=== PATIENT | male | born 1955 | race African-American/Black ===

== ENCOUNTER 2021-09-06 19:39 | Inpatient (IN) | payer MEDICARE, OTHER ==
[~2021-09-06] VITALS: Ht 170.2 cm; Wt 79.8 kg
[2021-09-06] MEDS ORDERED: ASPIRIN 81MG TABLET PO ONE (21:00)
[2021-09-06 21:44] LABS: HEMATOCRIT. 49.2 % (42.0-52.0); MEAN CORPUSCULAR HEMOGLOBIN 26.9 pg (28.0-32.0); MEAN CORPUSCULAR VOLUME 82.7 fL (80.0-94.0); MEAN PLATELET VOLUME 8.8 fl (7.4-10.4); PLATELET 107 x1000/uL (130-400); RED BLOOD CELL COUNT 5.95 mill/uL (4.7-6.1); RED CELL DISTRIBUTION WIDTH 13.9 % (11.6-14.6)
[2021-09-06 21:48] LABS: CHLORIDE 102 mEq/L (98-107)
[2021-09-06 22:15] LABS: PLATELET ESTIMATE DECREASED
[2021-09-06 23:15] LABS: CLARITY URINE CLEAR (CLEAR); COLOR URINE YELLOW (YELLOW); KETONES URINE NEGATIVE (NEGATIVE); LEUKOCYTE ESTERASE URINE NEGATIVE (NEGATIVE); NITRITE URINE NEGATIVE (NEGATIVE); OCCULT BLOOD URINE 2+ (NEGATIVE); PROTEIN URINE NEGATIVE (NEGATIVE); SPECIFIC GRAVITY URINE 1.007 (1.005-1.030); UROBILINOGEN URINE 0.2 E.U./dL (0.2-1.0)
[2021-09-06] MEDS ORDERED: NITROGLYCERIN 0.4MG TABLET SL SL PRN (23:15)
[2021-09-06] MEDS ORDERED: ONDANSETRON HCL 4MG/2ML INJ IV PRN (23:15)
[2021-09-06] MEDS ORDERED: DOCUSATE SODIUM 100MG CAPSULE PO PRN (23:15)
[2021-09-06] MEDS ORDERED: MAGNESIUM/ALUMINUM HYDROXIDE/SIMETHICONE 30ML UDC PO PRN (23:15)
[2021-09-06] MEDS ORDERED: POTASSIUM CHLORIDE 20MEQ TABLET SR PO NR (23:15)
[2021-09-06] MEDS ORDERED: CLONIDINE 0.1MG TABLET PO PRN (23:15)
[2021-09-06] MEDS: AMLODIPINE 10MG TABLET PO SCH (23:15)
[2021-09-06] MEDS ORDERED: KETOROLAC 15MG/ML VIAL IV PRN (23:15)
[2021-09-06] MEDS ORDERED: ACETAMINOPHEN 325MG TABLET PO PRN (23:15)
[2021-09-06] MEDS ORDERED: IPRATROPIUM/ALBUTEROL 0.5-3(2.5)MG/3ML NEB NEB PRN (23:15)
[2021-09-06 23:52] LABS: ETHANOL BLOOD < 10 mg/dL
[2021-09-06 23:55] LABS: LDL CHOLESTEROL 93 mg/dL (5-100); TOTAL IRON BINDING CAPACITY 317 ug/dL (250-450)
[2021-09-06 23:58] LABS: HDL CHOLESTEROL 61 mg/dL (40-59)
[2021-09-07] MEDS: GUAIFENESIN 200MG/10ML SUGAR FREE UDC PO PRN ×2 (00:32→22:06)
[2021-09-07 01:35] LABS: FOLIC ACID (FOLATE) SERUM 17.1 ng/mL (>5.38)
[2021-09-07] MEDS: ZOLPIDEM TARTRATE 5MG TABLET PO PRN ×2 (03:39→20:20)
[2021-09-07 05:09] LABS: BASOPHILS % 0.3 % (0.0-2.0); HEMATOCRIT. 46.7 % (42.0-52.0); HEMOGLOBIN. 15.5 g/dL (14.0-18.0); MEAN CORPUSCULAR HEMOGLOBIN 27.3 pg (28.0-32.0); MEAN CORPUSCULAR VOLUME 82.2 fL (80.0-94.0); MEAN PLATELET VOLUME 8.7 fl (7.4-10.4); MONOCYTES % 10.7 % (2.0-8.0); PLATELET 109 x1000/uL (130-400); RED BLOOD CELL COUNT 5.68 mill/uL (4.7-6.1); RED CELL DISTRIBUTION WIDTH 14.1 % (11.6-14.6)
[2021-09-07 05:19] LABS: CHLORIDE 104 mEq/L (98-107)
[2021-09-07 05:24] LABS: PHOSPHORUS 3.5 mg/dL (2.5-4.9)
[2021-09-07 05:28] LABS: CREATINE KINASE 195 IU/L (39-308)
[2021-09-07 05:30] LABS: CREATINE KINASE MB FRACTION 2.6 ng/mL (0.5-3.6)
[2021-09-07] MEDS: ENOXAPARIN 40MG/0.4ML SYR SUBCUT SCH (09:00)
[2021-09-07] MEDS: TAMSULOSIN HCL 0.4MG SR CAPSULE PO SCH (09:00)
[2021-09-07] MEDS: DUTASTERIDE 0.5MG CAPSULE PO SCH (09:00)
[2021-09-07] MEDS: AMLODIPINE 10MG TABLET PO SCH (09:00)
[2021-09-07] MEDS: ASPIRIN 325MG EC TABLET PO SCH (09:00)
[2021-09-07] MEDS: FAMOTIDINE 20MG TABLET PO SCH (09:00)
[2021-09-07 11:02] LABS: *COCAINE SCREEN URINE NEGATIVE (NEGATIVE); METHADONE URINE SCREEN NEGATIVE (NEGATIVE); OPIATES URINE SCREEN NEGATIVE (NEGATIVE)
[2021-09-07 11:12] LABS: *AMPHETAMINES SCREEN URINE NEGATIVE (NEGATIVE); *BARBITURATES SCREEN URINE NEGATIVE (NEGATIVE); CANNABINOID URINE SCREEN NEGATIVE (NEGATIVE); PHENCYCLIDINE URINE SCREEN NEGATIVE (NEGATIVE)
[2021-09-07 11:13] LABS: *BENZODIAZEPINES SCREEN URINE NEGATIVE (NEGATIVE)
[2021-09-07 15:39] VITALS: BP 129/92
[2021-09-07] MEDS ORDERED: ATOR20TA65 MT (15:47)
[2021-09-07] MEDS ORDERED: LISI10TA26 MT (15:47)
[2021-09-07 16:00] VITALS: BP 132/96
[2021-09-07 20:00] VITALS: BP 153/95
[2021-09-08] VITALS: BP_SYST 115; BP_SYST 143; BP_DIAS 70; BP_DIAS 89
[2021-09-08 00:01] LABS: CREATINE KINASE 304 IU/L (39-308)
[2021-09-08 00:02] LABS: CREATINE KINASE MB FRACTION 2.7 ng/mL (0.5-3.6)
[2021-09-08 04:00] VITALS: BP 142/87
[2021-09-08 08:00] VITALS: BP 146/83
[2021-09-08] MEDS: ASPIRIN 325MG EC TABLET PO SCH (08:22)
[2021-09-08] MEDS: ENOXAPARIN 40MG/0.4ML SYR SUBCUT SCH (08:22)
[2021-09-08] MEDS: FAMOTIDINE 20MG TABLET PO SCH (08:22)
[2021-09-08] MEDS: ACETAMINOPHEN 325MG TABLET PO PRN ×2 (08:23→20:12)
[2021-09-08] MEDS: DUTASTERIDE 0.5MG CAPSULE PO SCH (08:24)
[2021-09-08] MEDS: AMLODIPINE 10MG TABLET PO SCH (08:24)
[2021-09-08] MEDS: TAMSULOSIN HCL 0.4MG SR CAPSULE PO SCH (08:27)
[2021-09-08 12:00] VITALS: BP 135/90
[2021-09-08 16:00] VITALS: BP 110/77
[2021-09-08 20:00] VITALS: BP 144/90
[2021-09-08] MEDS: ZOLPIDEM TARTRATE 5MG TABLET PO PRN (22:59)
[2021-09-09] VITALS: BP 124/81
[2021-09-09 04:00] VITALS: BP 121/75
[2021-09-09 08:00] VITALS: BP 128/80
[2021-09-09] MEDS: ASPIRIN 325MG EC TABLET PO SCH (09:12)
[2021-09-09] MEDS: AMLODIPINE 10MG TABLET PO SCH (09:12)
[2021-09-09] MEDS: ENOXAPARIN 40MG/0.4ML SYR SUBCUT SCH (09:12)
[2021-09-09] MEDS: FAMOTIDINE 20MG TABLET PO SCH (09:12)
[2021-09-09] MEDS: TAMSULOSIN HCL 0.4MG SR CAPSULE PO SCH (09:13)
[2021-09-09 12:00] VITALS: BP 137/80
[2021-09-09 16:00] VITALS: BP 137/91
[2021-09-09] MEDS: DUTASTERIDE 0.5MG CAPSULE PO SCH (16:58)
[2021-09-09 20:00] VITALS: BP 137/87
[2021-09-09] MEDS: ACETAMINOPHEN 325MG TABLET PO PRN (23:48)
[2021-09-09] MEDS: ZOLPIDEM TARTRATE 5MG TABLET PO PRN (23:48)
[2021-09-10] VITALS: BP 149/88
[2021-09-10 04:00] VITALS: BP 148/90
[2021-09-10 08:00] VITALS: BP 141/98
[2021-09-10] MEDS: AMLODIPINE 10MG TABLET PO SCH (09:05)
[2021-09-10] MEDS: TAMSULOSIN HCL 0.4MG SR CAPSULE PO SCH (09:05)
[2021-09-10] MEDS: DUTASTERIDE 0.5MG CAPSULE PO SCH (09:05)
[2021-09-10] MEDS: ASPIRIN 325MG EC TABLET PO SCH (09:06)
[2021-09-10] MEDS: ENOXAPARIN 40MG/0.4ML SYR SUBCUT SCH (09:06)
[2021-09-10] MEDS: FAMOTIDINE 20MG TABLET PO SCH (09:06)
[2021-09-10 12:00] VITALS: BP 147/95
[2021-09-10 12:16] VITALS: BP 141/98
[2021-09-14] MEDS ORDERED: CIPR-263 MT (14:48)
== END 2021-09-10 14:30 | disposition home or self-care (01) | DRG 304 ==
LOC: ER 19:39 → MICUSO 22:50 → 7EST 09-07 14:56
PROVIDERS: ADMIT Internal Medicine; ATTEND Internal Medicine
DX: I16.1 Hypertensive emergency (principal); U07.1 COVID-19; J12.82 Pneumonia due to coronavirus disease 2019; N17.0 Acute kidney failure with tubular necrosis; I50.30 Unspecified diastolic (congestive) heart failure; R33.9 Retention of urine, unspecified; E87.6 Hypokalemia; I11.0 Hypertensive heart disease with heart failure; N40.0 Benign prostatic hyperplasia without lower urinary tract symptoms
CPT/HCPCS: 36415; 71045; 76770; 80053; 80061; 80305; 80320; 81003; 82550; 82553; 82607; 82746; 83036; 83540; 83550; 83735; 83880; 84100; 84145; 84484; 85025; 87426; 93005; 93970; 99285; J1650; J1885; G0480

== ENCOUNTER 2021-09-15 10:19 | Emergency (ER) | payer OTHER ==
[~2021-09-15] VITALS: Ht 170.2 cm; Wt 81.0 kg
[~2021-09-15 10:19] MED LIST: ATOR20TA65 MT; CIPR-263 MT; LISI10TA26 MT
[2021-09-15 11:03] VITALS: BP 140/68
== END 2021-09-15 11:04 | disposition home or self-care (01) ==
LOC: ER 10:19
DX: R33.9 Retention of urine, unspecified (principal); T83.018A Breakdown (mechanical) of other urinary catheter, initial encounter; I10 Essential (primary) hypertension
CPT/HCPCS: 99281

== ENCOUNTER 2021-09-16 12:51 | Inpatient (IN) | payer OTHER ==
[~2021-09-16] VITALS: Ht 170.2 cm; Wt 77.1 kg
[2021-09-16] MEDS ORDERED: CEFTRIAXONE 1 G PREMIX 50 ML IV ONE (15:45)
[2021-09-16 15:50] LABS: CLARITY URINE CLOUDY (CLEAR); COLOR URINE RED (YELLOW); KETONES URINE NEGATIVE (NEGATIVE); LEUKOCYTE ESTERASE URINE 2+ (NEGATIVE); NITRITE URINE NEGATIVE (NEGATIVE); OCCULT BLOOD URINE 3+ (NEGATIVE); PROTEIN URINE 2+ (NEGATIVE); SPECIFIC GRAVITY URINE 1.018 (1.005-1.030); UROBILINOGEN URINE 0.2 E.U./dL (0.2-1.0)
[2021-09-16] MEDS ORDERED: ACETAMINOPHEN 325MG TABLET PO ONE (16:00)
[2021-09-16] MEDS ORDERED: IPRATROPIUM BROMIDE (0.02%) 0.5MG/2.5ML NEB HHN STA (16:28)
[2021-09-16] MEDS ORDERED: ALBUTEROL (0.083%) 2.5MG/3ML NEB HHN STA (16:28)
[2021-09-16] MEDS ORDERED: LISINOPRIL 40MG TABLET PO ONE (16:30)
[2021-09-16] MEDS ORDERED: SODIUM CHLORIDE 0.9% 1,000 ML IV ONE (17:15)
[2021-09-16 17:19] LABS: BG BASE EXCESS -2.8 mmol/L (-2.0-2.0); BG CARBOXYHEMOGLOBIN 0.7 % (0.5-1.5); BG DEOXYHEMOGLOBIN 3.8 % (0.0-5.0); BG HCO3 ACT 21.6 mmol/L (22.0-26.0); BG METHEMOGLOBIN 0.4 % (0.0-1.5); BG OXYGEN SATURATION 96.2 % (92.0-98.5); BG OXYHEMOGLOBIN 95.1 % (94.0-97.0); BG PCO2 36.7 mmHg (35.0-45.0); BG PH 7.387 (7.350-7.450); BG PO2 81.1 mmHg (75.0-100.0); BG SAMPLE SITE RIGHT RADIAL; BG TOTAL HEMOGLOBIN 15.4 g/dL (12.0-18.0); BG VENT MODE ROOM AIR
[2021-09-16] MEDS ORDERED: MAGNESIUM/ALUMINUM HYDROXIDE/SIMETHICONE 30ML UDC PO PRN (18:45)
[2021-09-16] MEDS ORDERED: DOCUSATE SODIUM 100MG CAPSULE PO PRN (18:45)
[2021-09-16] MEDS ORDERED: GUAIFENESIN 200MG/10ML SUGAR FREE UDC PO PRN (18:45)
[2021-09-16] MEDS ORDERED: ONDANSETRON HCL 4MG/2ML INJ IV PRN (18:45)
[2021-09-16] MEDS ORDERED: NITROGLYCERIN 0.4MG TABLET SL SL PRN (18:45)
[2021-09-16] MEDS ORDERED: ACETAMINOPHEN 325MG TABLET PO PRN (18:45)
[2021-09-16] MEDS ORDERED: IPRATROPIUM/ALBUTEROL 0.5-3(2.5)MG/3ML NEB NEB PRN (18:45)
[2021-09-16] MEDS ORDERED: CLONIDINE 0.1MG TABLET PO PRN (18:45)
[2021-09-16] MEDS: AMLODIPINE 10MG TABLET PO SCH (19:03)
[2021-09-16] MEDS ORDERED: LEVOFLOXACIN 500MG PREMIX 100 ML IV NR (20:00)
[2021-09-16] MEDS: FAMOTIDINE 20MG TABLET PO SCH (20:55)
[2021-09-16] MEDS: DUTASTERIDE 0.5MG CAPSULE PO SCH (22:33)
[2021-09-16] MEDS: ZOLPIDEM TARTRATE 5MG TABLET PO PRN (22:33)
[2021-09-17 00:11] LABS: HEMATOCRIT. 45.1 % (42.0-52.0); HEMOGLOBIN. 14.2 g/dL (14.0-18.0); MEAN CORPUSCULAR HEMOGLOBIN 26.5 pg (28.0-32.0); MEAN CORPUSCULAR VOLUME 83.8 fL (80.0-94.0); MEAN PLATELET VOLUME 7.7 fl (7.4-10.4); PLATELET 212 x1000/uL (130-400); RED BLOOD CELL COUNT 5.38 mill/uL (4.7-6.1); RED CELL DISTRIBUTION WIDTH 13.9 % (11.6-14.6)
[2021-09-17 00:34] LABS: CREATINE KINASE MB FRACTION 2.6 ng/mL (0.5-3.6)
[2021-09-17 02:30] VITALS: BP 156/92
[2021-09-17] MEDS: ZOLPIDEM TARTRATE 5MG TABLET PO PRN ×2 (02:59→21:19)
[2021-09-17 05:07] LABS: PLATELET ESTIMATE NORMAL
[2021-09-17 07:54] LABS: HEMATOCRIT. 42.5 % (42.0-52.0); HEMOGLOBIN. 13.9 g/dL (14.0-18.0); MEAN CORPUSCULAR HEMOGLOBIN 27.1 pg (28.0-32.0); MEAN PLATELET VOLUME 7.7 fl (7.4-10.4); PLATELET 205 x1000/uL (130-400); RED BLOOD CELL COUNT 5.12 mill/uL (4.7-6.1); RED CELL DISTRIBUTION WIDTH 13.8 % (11.6-14.6)
[2021-09-17 07:59] LABS: CHLORIDE 111 mEq/L (98-107)
[2021-09-17 08:00] VITALS: BP 140/82
[2021-09-17] MEDS: DUTASTERIDE 0.5MG CAPSULE PO SCH (08:17)
[2021-09-17] MEDS: TAMSULOSIN HCL 0.4MG SR CAPSULE PO SCH (08:17)
[2021-09-17] MEDS: ENOXAPARIN 30MG/0.3ML SYR SUBCUT SCH (08:18)
[2021-09-17] MEDS: AMLODIPINE 10MG TABLET PO SCH (08:18)
[2021-09-17 08:20] LABS: PHOSPHORUS 3.7 mg/dL (2.5-4.9)
[2021-09-17 08:22] LABS: CREATINE KINASE 242 IU/L (39-308)
[2021-09-17 08:25] LABS: CREATINE KINASE MB FRACTION 3.3 ng/mL (0.5-3.6)
[2021-09-17] MEDS: ACETAMINOPHEN 325MG TABLET PO PRN ×2 (08:46→21:19)
[2021-09-17 10:32] LABS: PLATELET ESTIMATE NORMAL
[2021-09-17 12:00] VITALS: BP 110/72
[2021-09-17 12:32] LABS: *AMPHETAMINES SCREEN URINE NEGATIVE (NEGATIVE); *BARBITURATES SCREEN URINE NEGATIVE (NEGATIVE); *BENZODIAZEPINES SCREEN URINE NEGATIVE (NEGATIVE); *COCAINE SCREEN URINE NEGATIVE (NEGATIVE); CANNABINOID URINE SCREEN NEGATIVE (NEGATIVE); METHADONE URINE SCREEN NEGATIVE (NEGATIVE); OPIATES URINE SCREEN NEGATIVE (NEGATIVE); PHENCYCLIDINE URINE SCREEN NEGATIVE (NEGATIVE)
[2021-09-17 16:00] VITALS: BP 128/78
[2021-09-17] MEDS: FAMOTIDINE 20MG TABLET PO SCH (21:15)
[2021-09-18 04:00] VITALS: BP 132/78
[2021-09-18 08:00] VITALS: BP 149/84
[2021-09-18] MEDS: AMLODIPINE 10MG TABLET PO SCH (09:01)
[2021-09-18] MEDS: TAMSULOSIN HCL 0.4MG SR CAPSULE PO SCH (09:01)
[2021-09-18] MEDS: DUTASTERIDE 0.5MG CAPSULE PO SCH (09:01)
[2021-09-18] MEDS: ACETAMINOPHEN 325MG TABLET PO PRN ×2 (09:02→20:43)
[2021-09-18] MEDS: ENOXAPARIN 30MG/0.3ML SYR SUBCUT SCH (09:02)
[2021-09-18 12:00] VITALS: BP 121/74
[2021-09-18 16:00] VITALS: BP 117/72
[2021-09-18 20:00] VITALS: BP 136/85
[2021-09-18] MEDS ORDERED: LEVOFLOXACIN 250MG PREMIX 50 ML IV SCH (20:00)
[2021-09-18] MEDS: FAMOTIDINE 20MG TABLET PO SCH (20:42)
[2021-09-18] MEDS: ZOLPIDEM TARTRATE 5MG TABLET PO PRN (20:42)
[2021-09-19] VITALS: BP 130/91
[2021-09-19 06:00] VITALS: BP 148/92
[2021-09-19 07:52] LABS: CHLORIDE 110 mEq/L (98-107)
[2021-09-19 07:56] LABS: BASOPHILS % 0.6 % (0.0-2.0); EOSINOPHILS % 4.9 % (0.0-5.0); HEMATOCRIT. 40.4 % (42.0-52.0); HEMOGLOBIN. 13.6 g/dL (14.0-18.0); LYMPHOCYTES % 19.5 % (20.0-50.0); MEAN CORPUSCULAR HEMOGLOBIN 27.5 pg (28.0-32.0); MEAN CORPUSCULAR VOLUME 81.7 fL (80.0-94.0); MONOCYTES % 14.2 % (2.0-8.0); NEUTROPHILS % 60.8 % (40.0-76.0); PLATELET 233 x1000/uL (130-400); RED BLOOD CELL COUNT 4.94 mill/uL (4.7-6.1); RED CELL DISTRIBUTION WIDTH 13.8 % (11.6-14.6)
[2021-09-19 07:57] LABS: PHOSPHORUS 4.4 mg/dL (2.5-4.9)
[2021-09-19 08:00] VITALS: BP 132/80
[2021-09-19] MEDS: ENOXAPARIN 30MG/0.3ML SYR SUBCUT SCH (08:43)
[2021-09-19] MEDS: TAMSULOSIN HCL 0.4MG SR CAPSULE PO SCH (08:44)
[2021-09-19] MEDS: DUTASTERIDE 0.5MG CAPSULE PO SCH (08:44)
[2021-09-19] MEDS: AMLODIPINE 10MG TABLET PO SCH (08:44)
[2021-09-19] MEDS: ACETAMINOPHEN 325MG TABLET PO PRN ×2 (08:45→20:53)
[2021-09-19 12:00] VITALS: BP 118/73
[2021-09-19 16:00] VITALS: BP 120/68
[2021-09-19 20:00] VITALS: BP 144/90
[2021-09-19] MEDS: FAMOTIDINE 20MG TABLET PO SCH (20:52)
[2021-09-19] MEDS: ZOLPIDEM TARTRATE 5MG TABLET PO PRN (20:53)
[2021-09-20] VITALS: BP 135/83
[2021-09-20 04:00] VITALS: BP 140/89
[2021-09-20 07:57] VITALS: BP 118/69
[2021-09-20] MEDS: DUTASTERIDE 0.5MG CAPSULE PO SCH (08:18)
[2021-09-20] MEDS: TAMSULOSIN HCL 0.4MG SR CAPSULE PO SCH (08:18)
[2021-09-20] MEDS: AMLODIPINE 10MG TABLET PO SCH (08:19)
[2021-09-20] MEDS: ENOXAPARIN 30MG/0.3ML SYR SUBCUT SCH (08:19)
[2021-09-20 10:27] VITALS: BP 118/69
== END 2021-09-20 11:20 | disposition home or self-care (01) | DRG 871 ==
LOC: ER 12:51 → EDBEDREQ 17:09 → EDBEDREQTM 17:11 → MICUSO 22:39 → 6EST 09-17 02:28
PROVIDERS: ADMIT Internal Medicine; ATTEND Internal Medicine
DX: A41.9 Sepsis, unspecified organism (principal); N17.0 Acute kidney failure with tubular necrosis; N18.6 End stage renal disease; I16.1 Hypertensive emergency; N39.0 Urinary tract infection, site not specified; I12.0 Hypertensive chronic kidney disease with stage 5 chronic kidney disease or end stage renal disease; Z20.822 Contact with and (suspected) exposure to COVID-19; E66.9 Obesity, unspecified; N40.0 Benign prostatic hyperplasia without lower urinary tract symptoms; Z91.11 Patient's noncompliance with dietary regimen; Z91.14 Patient's other noncompliance with medication regimen; Z68.26 Body mass index [BMI] 26.0-26.9, adult
CPT/HCPCS: 36415; 36600; 80048; 80053; 80305; 81003; 82375; 82550; 82553; 82805; 83735; 84100; 84484; 85025; 87426; 99285; J0696; J1650; J1956; J7030; A4315

== ENCOUNTER 2021-09-29 09:16 | Emergency (ER) | payer MEDICARE, OTHER ==
[~2021-09-29] VITALS: Ht 167.6 cm; Wt 73.0 kg
[2021-09-29] MEDS ORDERED: ACETAMINOPHEN 325MG TABLET PO ONE (09:45)
[2021-09-29 10:05] LABS: BASOPHILS % 0.8 % (0.0-2.0); HEMATOCRIT. 43.6 % (42.0-52.0); HEMOGLOBIN. 14.3 g/dL (14.0-18.0); LYMPHOCYTES % 24.2 % (20.0-50.0); MEAN CORPUSCULAR HEMOGLOBIN 26.8 pg (28.0-32.0); MEAN CORPUSCULAR VOLUME 81.9 fL (80.0-94.0); MEAN PLATELET VOLUME 7.3 fl (7.4-10.4); MONOCYTES % 5.9 % (2.0-8.0); NEUTROPHILS % 64.1 % (40.0-76.0); PLATELET 236 x1000/uL (130-400); RED BLOOD CELL COUNT 5.32 mill/uL (4.7-6.1); RED CELL DISTRIBUTION WIDTH 13.5 % (11.6-14.6)
[2021-09-29 10:11] LABS: CHLORIDE 106 mEq/L (98-107)
[2021-09-29 10:18] LABS: CLARITY URINE CLEAR (CLEAR); COLOR URINE YELLOW (YELLOW); KETONES URINE TRACE (NEGATIVE); LEUKOCYTE ESTERASE URINE 2+ (NEGATIVE); NITRITE URINE NEGATIVE (NEGATIVE); OCCULT BLOOD URINE 2+ (NEGATIVE); PROTEIN URINE 1+ (NEGATIVE); SPECIFIC GRAVITY URINE 1.017 (1.005-1.030); UROBILINOGEN URINE 0.2 E.U./dL (0.2-1.0)
[2021-09-29] MEDS ORDERED: CIPR500T5 MT (11:56)
[2021-09-29 12:29] VITALS: BP 111/59
== END 2021-09-29 12:32 | disposition home or self-care (01) ==
LOC: ER 09:40
DX: R31.9 Hematuria, unspecified (principal); N39.0 Urinary tract infection, site not specified; I10 Essential (primary) hypertension; Z87.440 Personal history of urinary (tract) infections
CPT/HCPCS: 36415; 80053; 81003; 85025; 99282; A5200

== ENCOUNTER 2021-09-30 10:35 | Inpatient (IN) | payer MEDICARE, OTHER ==
[~2021-09-30] VITALS: Ht 170.2 cm; Wt 35.4 kg
[~2021-09-30 10:35] MED LIST changes: +CIPR500T5 MT
[2021-09-30] MEDS ORDERED: SODIUM CHLORIDE 0.9% 1,000 ML IV ONE (11:15)
[2021-09-30 11:20] LABS: CLARITY URINE TURBID (CLEAR); COLOR URINE RED (YELLOW); KETONES URINE NEGATIVE (NEGATIVE); LEUKOCYTE ESTERASE URINE 2+ (NEGATIVE); NITRITE URINE POSITIVE (NEGATIVE); OCCULT BLOOD URINE 2+ (NEGATIVE); PROTEIN URINE 2+ (NEGATIVE); UROBILINOGEN URINE 0.2 E.U./dL (0.2-1.0)
[2021-09-30 11:23] LABS: BASOPHILS % 0.8 % (0.0-2.0); EOSINOPHILS % 5.6 % (0.0-5.0); HEMATOCRIT. 43.4 % (42.0-52.0); HEMOGLOBIN. 14.7 g/dL (14.0-18.0); LYMPHOCYTES % 25.6 % (20.0-50.0); MEAN CORPUSCULAR HEMOGLOBIN 27.8 pg (28.0-32.0); MEAN CORPUSCULAR VOLUME 81.9 fL (80.0-94.0); MEAN PLATELET VOLUME 7.4 fl (7.4-10.4); MONOCYTES % 8.1 % (2.0-8.0); NEUTROPHILS % 59.9 % (40.0-76.0); PLATELET 241 x1000/uL (130-400); RED BLOOD CELL COUNT 5.29 mill/uL (4.7-6.1); RED CELL DISTRIBUTION WIDTH 13.4 % (11.6-14.6)
[2021-09-30 11:25] LABS: CHLORIDE 106 mEq/L (98-107)
[2021-09-30] MEDS ORDERED: LEVOFLOXACIN 750MG PREMIX 150 ML IV ONE (11:30)
[2021-09-30 16:00] VITALS: BP 164/109
[2021-09-30] MEDS: SODIUM CHLORIDE 0.45% 1,000 ML IV SCH (16:45)
[2021-09-30] MEDS ORDERED: ACETAMINOPHEN 325MG TABLET PO ONE (16:45)
[2021-09-30] MEDS ORDERED: ACETAMINOPHEN 325MG TABLET PO PRN (17:00)
[2021-09-30] MEDS ORDERED: NALOXONE HCL 0.4MG/ML VIAL IV PRN (17:00)
[2021-09-30] MEDS: HYDROCODONE/ACETAMINOPHEN 5/325MG TABLET PO PRN (17:42)
[2021-09-30] MEDS: LISINOPRIL 10MG TABLET PO SCH (17:42)
[2021-09-30] MEDS: ATORVASTATIN CALCIUM 20MG TABLET PO SCH (17:42)
[2021-09-30 19:33] VITALS: BP 147/90
[2021-09-30 20:00] VITALS: BP 137/80
[2021-09-30] MEDS: ZOLPIDEM TARTRATE 5MG TABLET PO PRN (20:57)
[2021-10-01] VITALS: BP 139/83
[2021-10-01] MEDS: SODIUM CHLORIDE 0.45% 1,000 ML IV SCH ×3 (03:41→21:46)
[2021-10-01 04:00] VITALS: BP 134/71
[2021-10-01 08:00] VITALS: BP 142/86
[2021-10-01] MEDS: ATORVASTATIN CALCIUM 20MG TABLET PO SCH (08:36)
[2021-10-01] MEDS: LISINOPRIL 10MG TABLET PO SCH (08:36)
[2021-10-01 12:00] VITALS: BP 123/84
[2021-10-01] MEDS ORDERED: ONDANSETRON HCL 4MG TABLET PO PRN (12:00)
[2021-10-01] MEDS ORDERED: LEVOFLOXACIN 500MG PREMIX 100 ML IV SCH (12:00)
[2021-10-01] MEDS ORDERED: ONDANSETRON HCL 4MG/2ML INJ IV PRN (12:15)
[2021-10-01 16:00] VITALS: BP 133/72
[2021-10-01 20:00] VITALS: BP 137/95
[2021-10-01] MEDS: ZOLPIDEM TARTRATE 5MG TABLET PO PRN (21:49)
[2021-10-01] MEDS: HYDROCODONE/ACETAMINOPHEN 5/325MG TABLET PO PRN (21:50)
[2021-10-02] VITALS: BP 116/69
[2021-10-02 04:00] VITALS: BP 125/68
[2021-10-02 07:19] LABS: BASOPHILS % 0.6 % (0.0-2.0); EOSINOPHILS % 6.3 % (0.0-5.0); HEMATOCRIT. 39.4 % (42.0-52.0); HEMOGLOBIN. 12.7 g/dL (14.0-18.0); LYMPHOCYTES % 27.2 % (20.0-50.0); MEAN CORPUSCULAR HEMOGLOBIN 26.5 pg (28.0-32.0); MEAN CORPUSCULAR VOLUME 82.4 fL (80.0-94.0); MEAN PLATELET VOLUME 7.8 fl (7.4-10.4); MONOCYTES % 11.9 % (2.0-8.0); PLATELET 204 x1000/uL (130-400); RED BLOOD CELL COUNT 4.78 mill/uL (4.7-6.1); RED CELL DISTRIBUTION WIDTH 13.4 % (11.6-14.6)
[2021-10-02 07:27] LABS: CHLORIDE 106 mEq/L (98-107)
[2021-10-02 08:00] VITALS: BP 155/84
[2021-10-02] MEDS: ATORVASTATIN CALCIUM 20MG TABLET PO SCH (09:56)
[2021-10-02] MEDS: LISINOPRIL 10MG TABLET PO SCH (09:56)
[2021-10-02] MEDS: SODIUM CHLORIDE 0.45% 1,000 ML IV SCH (09:57)
[2021-10-02 10:59] VITALS: BP 136/80
== END 2021-10-02 11:45 | disposition home or self-care (01) | DRG 690 ==
LOC: ER 10:35 → 6EST 13:57 → EDBEDREQ 13:58 → EDBEDREQTM 13:58 → ENRESERV 15:21
PROVIDERS: ADMIT Internal Medicine; ATTEND Internal Medicine
DX: N39.0 Urinary tract infection, site not specified (principal); R65.10 Systemic inflammatory response syndrome (SIRS) of non-infectious origin without acute organ dysfunction; Z20.822 Contact with and (suspected) exposure to COVID-19; R31.0 Gross hematuria; E86.0 Dehydration; I10 Essential (primary) hypertension; Z79.899 Other long term (current) drug therapy
CPT/HCPCS: 36415; 71045; 74176; 80048; 80053; 81003; 85025; 87426; 93005; 99285; C1893; J1956; J2405; J7030; Q0162; A4315

== ENCOUNTER → 2021-10-09 | Emergency (ER) | payer MEDICARE, OTHER ==
[~2021-10-09] MED LIST changes: -CIPR-263 MT; -CIPR500T5 MT
== END | disposition home or self-care (01) ==
LOC: ER 11:08
DX: Z53.21 Procedure and treatment not carried out due to patient leaving prior to being seen by health care provider (principal); Z46.6 Encounter for fitting and adjustment of urinary device

== ENCOUNTER 2021-10-15 11:38 | Emergency (ER) | payer MEDICARE ==
[~2021-10-15] VITALS: Ht 167.6 cm; Wt 75.0 kg
[2021-10-15 13:03] VITALS: BP 133/69
== END 2021-10-15 14:20 | disposition home or self-care (01) ==
LOC: ER 11:38
DX: Z46.6 Encounter for fitting and adjustment of urinary device (principal); E78.00 Pure hypercholesterolemia, unspecified; I10 Essential (primary) hypertension; E11.9 Type 2 diabetes mellitus without complications
CPT/HCPCS: 99281; A4315